=== PATIENT | female | born 1965 | race Caucasian/White ===

== ENCOUNTER → 2016-12-25 18:14 | Outpatient (CLI) | payer BC | END | disposition home or self-care (01) | LOC: D.MAMMO 10:15 | DX: Z12.31 Encounter for screening mammogram for malignant neoplasm of breast (principal) ==

== ENCOUNTER 2017-03-12 11:43 | Emergency (ER) | payer BC ==
[2017-03-12 12:20] LABS: BASOPHILS 0.2 % (0-2); EOSINOPHILS 1.1 % (0-7); HEMATOCRIT 42.7 % (36.0-48.0); HEMOGLOBIN 14.2 g/dL (12-16); IMMATURE GRANULOCYTES 0.2 % (0-5); LYMPHOCYTES 20.7 % (15-50); MCH 30.8 pg (26.0-34.0); MCHC 33.3 g/dL (31.0-37.0); MCV 92.6 fL (80.0-100.0); MEAN PLATELET VOLUME 11.4 fL (7.4-10.4); MONOCYTES 4.3 % (2-11); NEUTROPHILS 73.5 % (40-80); PLATELET COUNT 256 10x3/uL (130-400); RBC 4.61 10x6/uL (4.00-5.40); RDW 13.3 % (11.5-14.5); WBC 9.8 10x3/uL (4.8-10.8)
[2017-03-12 12:42] LABS: ALBUMIN 3.5 g/dL (3.4-5.0); ALKALINE PHOSPHATASE 64 U/L (46-116); ALT (SGPT) 21 U/L (10-68); BILIRUBIN - TOTAL 0.24 mg/dL (0.2-1.3); CALC OSMOLALITY 280 mosm/kg (275-300); CALCIUM 8.9 mg/dL (8.5-10.1); CHLORIDE - SERUM 108 mmol/L (98-107); CREATININE - SERUM 0.6 mg/dL (0.6-1.3); GLUCOSE 85 mg/dL (74-106); PROTEIN - SERUM 6.9 g/dL (6.4-8.2); SODIUM 142 mmol/L (136-145); UREA NITROGEN 10 mg/dL (7-18); eGFR NON AFRICAN AMERICAN > 90 mL/min (90-120)
[2017-03-12 12:55] LABS: CHOL - HDL RATIO 3.3 ratio (2.3-4.1); CHOLESTEROL, TOTAL 154 mg/dL (0-200); CKMB 0.1 U/L (0.0-3.6); CREATINE KINASE 47 UL (21-215); HDL CHOLESTEROL 47 mg/dL (32-96); LDL CHOLESTEROL 88 mg/dL (0-100); LDL-HDL RATIO 1.9 ratio (1.5-3.5); TRIGLYCERIDE 96 mg/dL (30-200)
[2017-03-12 12:59] LABS: TROPONIN-I < 0.017 ng/mL (0.000-0.060)
== END 2017-03-12 14:27 | disposition home or self-care (01) ==
LOC: D.ER 11:43
PROVIDERS: Family Medicine
DX: R07.89 Other chest pain (principal)

== ENCOUNTER → 2018-02-22 15:30 | Outpatient (CLI) | payer BC | END | disposition home or self-care (01) | LOC: D.MAMMO 15:30 | DX: Z12.31 Encounter for screening mammogram for malignant neoplasm of breast (principal) ==

== ENCOUNTER 2019-04-09 09:00 | Outpatient (CLI) | payer BC | END 2019-04-09 10:00 | disposition home or self-care (01) | LOC: D.MAMMO 09:00 | PROVIDERS: ATTEND Emergency Medicine | DX: Z12.31 Encounter for screening mammogram for malignant neoplasm of breast (principal) ==

== ENCOUNTER → 2019-06-24 12:30 | Outpatient (CLI) | payer BC ==
[2019-06-05 16:09] VITALS: BMI 31.1
[~2019-06-24 12:30] MED LIST: ATARAX 25 MG TA25 MG PO; BUPROPION XL300 MG PO; BUSPAR5 MG PO; ELIQUIS5 MG PO; FLORAJEN3 CAPS460 MG PO; IMITREX100 MG PO; INTROVALE; LEVOFLOXACIN500 MG PO; NAPROSYN500 MG PO; Nystatin Oral Susp [ PO; TOPAMAX100 MG PO
== END | disposition home or self-care (01) ==
LOC: D.RT 12:30
PROVIDERS: ATTEND Internal Medicine Pulmonary Disease
DX: R06.00 Dyspnea, unspecified (principal)

== ENCOUNTER 2019-07-22 16:54 | Observation (INO) | payer BC ==
[~2019-07-22] VITALS: Ht 165.1 cm; Wt 80.0 kg
--- NOTE | ~2019-07-22 | HEMODYNAMI ---
PATIENT:MILAGRO JUSTICE MEDICAL RECORD: [id number] : 67 [id number] ADMISSION DATE: 07/22/19 Generatedon:07/23/201913:04 Patient name: MILAGRO JUSTICE Patient #: [id number] SSN: [id number] : 1965 Date of study: 07/23/2019 Page: Of Hemodynamic Procedure Report Patient Data Patient Demographics Procedure consent was obtained First Name: MILAGRO Gender: Female Last Name: RESHMA : 1965 Patient #: [id number] Age: 53 year(s) Race: SSN: [id number] Additional ID: [id number] Contact details [address]: [address] [place] [address] [address] State: [place] City: [place] Zip code: [address] Admission Admission Data Admission Date: 07/22/2019 Admission Time: 18:19 Arrival Date: 07/23/2019 Arrival Time: 18:19 Admit Source: Emergency Insurance Payor: Private department health insurance Room #: D.2114 [facility] #: [id number] Height (in.): 64.96 BSA: 1.87 (m2) Height (cm.): 165 BMI: 29.38 (kg/m2) Weight (lbs.): 176.37 Weight (kg.): 80 Lab Results Lab Result Date: 07/23/2019 Lab Result Time: 0:00 Biochemistry Name Units Result Min Max BUN mg/dl 12 --(-*--)-- 7 18 Creatinine mg/dl 1 --(--*-)-- 0.6 1.3 eGFR ml/min 61.45769 *-(----)-- 90 120 NONAFRICAN CBC Name Units Result Min Max Hemoglobin g/dl 12.3 *-(----)-- 13.5 17.5 Procedure Procedure Types Cath Procedure Diagnostic Procedure LHC LHC w/Coronaries Sedation Charges Moderate Sedation up to 15 minutes Procedure Description Procedure Date Procedure Date: 07/23/2019 Procedure Start Time: 12:50 Procedure End Time: 12:59 Procedure Staff Name Function Sonia Swensonen RT Scrub Sukhi Guidry RN Nurse Surinder Berry MD Performing Physician Fely King RT Monitor Procedure Data Cath Procedure Fluoroscopy Diagnostic fluoroscopy Total fluoroscopy Time: 0.9 time: 0.9 min min Diagnostic fluoroscopy Total fluoroscopy dose: 289 dose: 289 mGy mGy Contrast Material Contrast Material Type Amount (ml) Isovue 300 33 Entry Location Entry Primary Successful Side Size Upsize Upsize Entry Closure Succes sful Closure Location (Fr) 1 (Fr) 2 (Fr) Remarks Device Remarks Femoral Right 5 Fr Exoseal artery Estimated blood loss: 5 ml Diagnostic catheters Device Type Used For End Catheter Placement MULTIPACK JL 4.0 5Fr Left Coronary catheter Angiography MULTIPACK 3DRC 5Fr Right Coronary catheter Angiography MULTIPACK Pigtail 5 Fr LV Angiography catheter Procedure Complications No complications Procedure Medications Medication Administration Route Dosage Oxygen etCO2 Nasal cannula 2 l/min Lidocaine 2% added to field 20 Heparin Flush Bag added to field 2 bags (1000units/500ml NS) 0.9% NaCl I.V. 100 ml/hr Versed I.V. 2 mg Fentanyl I.V. 50 mcg Versed I.V. 1 mg Fentanyl I.V. 50 mcg Hemodynamics Rest BSA: 1.87 (m2) HGB: 12.3 (g/dl) O2 Consumption: Estimated: 183.67 (ml/min) O2 Co nsumption indexed: Estimated:98.22 (ml/min/m) Heart Rate: 73 (bpm) Pressure Samples Time Site Value (mmHg) Purpose Heart Use Rate(bpm) 12:54 LV 112/13,13 Snapshot 70 12:55 LV 98/17,27 Pullback 72 12:55 AO 112/64(95) Pullback 72 Gradients Valve Time Site 1 Site 2 Mean SEP/DFP Peak To Heart Use (mmHg) (sec/min) Peak Rate (mmHg) (bpm) Aortic 12:55 LV AO 0 21 0 72 98/17,27 112/64(95) Calculations Valve P-P Mean Valve Index Valve Source Name Gradient Area Flow (cm2) Aortic 0 0 0 0 Snapshots Pre Cath Intra NCS Post Cath Vital Signs Time Heart Resp SPO2 etCO2 NIBP (mmHg) Rhythm Pain Sedation Rate (ipm) (%) (mmHg) Status Level (bpm) 12:33:06 74 17 100 0 144/85(112) NSR 0 (11) 10(A) , No pain 12:37:15 72 14 98 0 146/87(95) NSR 0 (11) 10(A) , No pain 12:41:27 74 15 98 31.5 118/80(93) NSR 0 (11) 10(A) , No pain 12:45:31 71 14 96 31.5 118/78(93) NSR 0 (11) 10(A) , No pain 12:49:35 73 12 98 35.2 122/75(95) NSR 0 (11) 10(A) , No pain 12:53:39 71 12 96 34.4 119/81(102) NSR 0 (11) 9(A) , No pain 12:57:42 70 13 97 35.2 117/79(94) NSR 0 (11) 10(A) , No pain Medications Time Medication Route Dose Verified Delivered Reason Notes Eff ectiveness by by 12:36:46 Versed I.V. 2 mg Surinder Dustinie for [facility] Socrates Guidry RN sedation 12:36:51 Fentanyl I.V. 50 Surinder Dust[address] mcg [facility] Socrates Guidry RN sedation 12:37:25 Oxygen etCO2 2 Surinder Dustinie used for Nasal l/min JamalSocrates Guidry delivery analyst cannula 12:37:31 Lidocaine 2% added 20ml Surinder Surinder for local to vial [facility] anesthetic field MD CHAUDHRY 12:37:38 Heparin Flush added 2 Surinder Surinder used for Bag to bags [facility] procedure (1000units/500ml field MD CHAUDHRY NS) 12:37:46 0.9% NaCl I.V. 100 Surinder Dustinie Per ml/hr JamalSocrates Guidry RN physician 12:51:31 Versed I.V. 1 mg Surinder Dustinie for JamalSocrates Guidry RN sedation 12:51:34 Fentanyl I.V. 50 Surinder Chanie for mcg Jamal Guidry RN sedation Procedure Log Time Note 12:08:33 Informed consent obtained and on chart 12:10:42 Admit Source: Emergency department 12:10:44 Arrival Date: 07/23/2019 6:19:00 PM 12:11:13 Insurance Payor : Private health insurance 12:11:24 Patient Height : 64.96 inches 12:11:28 Patient Weight : 176.37 lbs 12:12:04 Lab Result : eGFR NONAFRICAN 61.51404 ml/min 12:12:04 Lab Result : Hemoglobin 12.3 g/dl 12:12:04 Lab Result : BUN 12 mg/dl 12:12:04 Lab Result : Creatinine 1 mg/dl 12:12:35 Diagnostic Cath Status : Urgent 12:14:23 Procedure Status Urgent Heart Cath (IP). 12:14: Time tracking: Regular hours (M-F 7:00 - 5:00) 12:14: Sonia Cage RT(R) sent for patient. Start room use. 12:14:31 Plan of Care:Hemodynamics will remain stable., Cardiac rhythm will remain stable., Comfort level will be maintained., Respiratory function will remain adequate., Patient/ family verbilizes understanding of procedure., Procedure tolerated without complication., Recovers from procedure without complications.. 12:25:02 Risk of Mortality: 0.3 12:25:06 Risk of blood transfusion: 1.0 12:25:10 Risk of SEEMA: 0.8 12:25:16 2) 60-89 Mildly reduced kidney function, and other findings (as for stage 1) point to kidney disease. 12:25:33 Maximum allowable contrast dose (3.7 X eGFR X 0.75)172 ml. 12:25:44 Patient received from Med II to CCL 2 Alert and oriented. Tansferred to table in Supine position. 12:25:45 ECG and BP/O2 sat monitors applied to patient. 12:25:45 Correct patient and procedure confirmed by team. 12:25:45 Warm blankets applied, and gloria hugger turned on for patient comfort. 12:32:02 Vital chart was started 12:32:02 Baseline sample Acquired. 12:32:17 Rhythm: sinus rhythm 12:32:19 Full Disclosure recording started 12:32:23 H&P Date Dictated: 07/23/2019 New H&P dictated by physician.. 12:32:24 Pre-procedure instructions explained to patient. 12:32:25 Pre-op teaching completed and patient verbalized understanding. 12:32:50 Family in waiting room. 12:32:52 Patient NPO since Midnight. 12:32:54 Is the patient allergic to Iodine/contrast media? No. 12:32:55 Was the patient premedicated? Yes 12:32:56 Is patient on blood thinner?Yes 12:33:00 ACC The patient was administered the following blood thiners within the last 24 hours: Eliquis 12:33:04 Patient diabetic? No. 12:33:06 Previous problem with sedation/anesthesia? No ? 12:33:08 Snore? Yes 12:33:09 Deviated septum? No 12:33:09 Sleep apnea? No 12:33:15 Sticks out tongue? Yes 12:33:15 Opens mouth fully? Yes 12:33:46 Airway obstruction? Yes BILATERAL PULMONARY EMBOLUS 12:33:51 Dentures? No ? 12:33:54 Pre procedure: right dorsailis pedis pulse 2+ Normal; easily identifiable; not easily obliterated 12:33:56 Pre procedure: left dorsailis pedis pulse 2+ Normal; easily identifiable; not easily obliterated 12:33:58 Patient pain scale 0/10 ?. 12:34:05 IV patent on arrival in left forearm with 0.9% NaCl at [facility]. 12:34:09 Lab results completed and on chart. 12:34:13 Right groin area was prepped with chlora-prep and draped in sterile fashion 12:34:14 Sharps counted by scrub and verified by R.N. 12:34:14 Alarms reviewed by R. N. 12:34:18 --------ALL STOP TIME OUT------ 12:34:18 Physician arrived 12:34:19 Final Timeout: patient, procedure, and site verified with staff and physician. All members of the team are in agreement. 12:34:21 Right groin site verified by team. 12:34:31 Fire Safety Assessment: A--An alcohol-based skin anteseptic being used preoperatively., C--Open oxygen or nitrous oxide is being used., D--An ESU, laser, or fiber-optic light is being used. 12:34:35 Physical assessment completed. ASA score P 2 - A patient with mild systemic disease as per Surinder Berry MD. 12:34:39 Sedation plan: IV Moderate Sedation Medication:Versed, Fentanyl 12:36:43 Use device set Femoral Dx 12:36:44 Bag Decanter (2002S) opened to sterile field. 12:36:44 ACIST Syringe (18222) opened to sterile field. 12:36:45 Medline Cath Pack ([id number]) opened to sterile field. 12:36:46 Versed 2 mg I.V. was administered by Sukhi Guidry RN; for sedation; Verbal order read back and verified. 12:36:46 ACIST Manifold (80828) opened to sterile field. 12:36:46 ACIST Hand Control (58146) opened to sterile field. 12:36:47 Tegaderm 4 x 4 (1626W) opened to sterile field. 12:36:47 DIAGNOSTIC Multipack 5Fr catheter set (HY3841) opened to sterile field. 12:36:48 SHEATH 5FR [place] (LIG747) opened to sterile field. 12:36:49 EMERALD Guide Wire (996-424) opened to sterile field. 12:36:51 Fentanyl 50 mcg I.V. was administered by Sukhi Guidry RN; for sedation; Verbal order read back and verified. 12:37:25 Oxygen 2 l/min etCO2 Nasal cannula was administered by Sukhi Guidry RN; used for procedure; Verbal order read back and verified. 12:37:31 Lidocaine 2% 20ml vial added to field was administered by Surnider Berry MD; for local anesthetic; Verbal order read back and verified. 12:37:38 Heparin Flush Bag (1000units/500ml NS) 2 bags added to field was administered by Surinder Berry MD; used for procedure; Verbal order read back and verified. 12:37:46 0.9% NaCl 100 ml/hr I.V. was administered by Sukhi Guidry RN; Per physician; Verbal order read back and verified. 12:43:07 Zero performed for pressure channel P1 12:50:02 Procedure started. 12:50:05 Local anesthetic to right femoral artery with Lidocaine 2% by Surinder Berry MD.INITIAL ACCESS ONLY 12:50:45 A 5 Fr sheath was inserted into the Right Femoral artery 12:51:04 A MULTIPACK JL 4.0 5Fr catheter was advanced over the wire and used for Left Coronary Angiography. 12:51:22 LCA angiography performed. 12:51:25 Injector settings: Ml/sec: 3, Volume: 6, 12:51:31 Versed 1 mg I.V. was administered by Sukhi Guidry RN; for sedation; Verbal order read back and verified. 12:51:34 Fentanyl 50 mcg I.V. was administered by Sukhi Guidry RN; for sedation; Verbal order read back and verified. 12:52:55 Catheter removed. 12:52:59 A MULTIPACK 3DRC 5Fr catheter was advanced over the wire and used for Right Coronary Angiography. 12:53:27 RCA angiography performed. 12:53:29 Injector settings: Ml/sec: 3, Volume: 6, 12:53:32 Catheter removed. 12:53:41 A MULTIPACK Pigtail 5 Fr catheter was advanced over the wire and used for LV Angiography. 12:54:46 LV hemodynamics recorded. 12:54:47 LV gram done using CARSON 12:54:54 Injector settings: Ml/sec: 5, Volume: 15, 12:55:09 EF : 55 % 12:55:11 Catheter removed. 12:55:14 EXOSEAL 5Fr (EX500) opened to sterile field. 12:55:25 Sheath removed intact; hemostasis achieved with Exoseal to the Right Femoral artery. 12:55:26 Procedure ended.(Physican Out) 12:56:04 Fluoroscopy time 00.90 minutes. 12:56:07 Fluoroscopy dose: 289 mGy 12:56:07 Flurop Dose total: 289 12:56:13 Dose Area Product 63910 mGy/cm. 12:56:16 Contrast amount:Isovue 300 33ml. 12:56:18 Maximum allowable dose exceeded? No. 12:56:20 Sharps counted by scrub and verified by R.N. 12:56:30 Insertion/operative site no bleeding no hematoma. 12:56:33 Post-op/insertion site Right Femoral artery dressed using a 4 x 4 and Tegaderm. 12:56:35 Post Procedure Pulses reassessed and unchanged 12:56:37 Post procedure rhythm: unchanged. 12:56:40 Estimated blood loss: 5 ml 12:56:42 Patient needs reinforcement of post procedure teaching. 12:56:42 Post procedure instruction explained to patient.Patient verbalizes understanding. 12:57:08 Procedure type changed to Cath procedure, Diagnostic procedure, LHC, LHC w/Coronaries, Sedation Charges, Moderate Sedation up to 15 minutes 12:57:09 Procedure and supply charges have been captured, reviewed, submitted and are correct. 12:57:14 Procedure Complication : No complications 12:58:52 Vital chart was stopped 12:58:54 [facility] Findings: mild to moderate CAD (<70%) 12:58:56 Operative report dictated upon procedure completion. 12:58:57 See physician's report for complete and final results. 12:59:09 Report given to [facility] II. 12:59:11 Patient transfered to Med II with Stretcher. 12:59:14 Full Disclosure recording stopped 12:59:14 Procedure ended. 12:59:19 End room use (Document Last) 13:02:21 End room use (Document Last) Device Usage Item Name Manufacture Quantity Catalog Hospital Part Current Minimal L ot# / Number Charge Number Stock Stock Serial# Code ACIST Acist 1 62485 582853 101033 143971 20 Syringe Medical (85461) Systems Inc Bag Microtek 1 2001S 013321 58403 475679 5 Decanter Medical Inc. () Medline Medline 1 [id number] 763860 73546 356442 5 Cath Pack ([id number]) ACIST Hand Acist 1 51613 427046 785223 533064 5 Control Medical (23111) Systems Inc ACIST Acist 1 79244 491537 726721 087830 5 Manifold Medical (87546) Systems Inc DIAGNOSTIC Cardinal 1 [id number] 523599 21663 677916 30 Multipack Health 5Fr catheter set (QU2724) Tegaderm 4 3M 1 1626W 304022 002849 564805 5 x 4 (1626W) SHEATH 5FR Terumo 1 VUT630 876964 900155 297557 5 [place] (UYE122) EMERALD Cardinal 1 502-455 782943 535458 212315 5 Guide Wire Health (502455) MULTIPACK Cardinal 1 809615 5 JL 4.0 5Fr Health catheter MULTIPACK Cardinal 1 088243 5 3DRC 5Fr Health catheter MULTIPACK Cardinal 1 045144 5 Pigtail 5 Health Fr catheter EXOSEAL 5Fr Cardinal 1 EX500 727490 046590 947591 10 (EX500) Health Signature Audit Waite Stage Time Signature Unsigned Intra-Procedure 07/23/2019 Sonia Cage 1:02:21 PM RT(R) Intra-Procedure 07/23/2019 Sukhi Guidry RN 1:04:26 PM Intra-Procedure 07/23/[address] 1:04:52 PM Socrates Signatures Nurse : Sukhi Guidry RN Signature : Date : Time : Performing Physician : Signature : Surinder Berry MD Date : Time : Monitor : Fely King Signature : RT Date : Time : [facility] [address] [place] [address]
[2019-07-22] MEDS ORDERED: ULTRAM50 MG PO (17:09)
[2019-07-22] MEDS ORDERED: VITAMIN B-1250 MCG (17:09)
[2019-07-22] MEDS ORDERED: FOLATE (17:10)
[2019-07-22 17:27] LABS: CALC OSMOLALITY 287 mosm/kg (275-300); CALCIUM 9.2 mg/dL (8.5-10.1); CARBON DIOXIDE 23.4 mmol/L (21.0-32.0); CHLORIDE - SERUM 109 mmol/L (98-107); CREATININE - SERUM 1.3 mg/dL (0.6-1.3); GLUCOSE 92 mg/dL (74-106); POTASSIUM - SERUM 3.3 mmol/L (3.5-5.1); SODIUM 145 mmol/L (136-145); UREA NITROGEN 11 mg/dL (7-18); eGFR NON AFRICAN AMERICAN 46 mL/min (90-120)
[2019-07-22 17:30] LABS: APTT 26.6 SECONDS (22.8-39.4); INR 1.07 (0.85-1.17); PROTIME 13.8 SECONDS (11.6-15.0)
[2019-07-22 17:31] LABS: D-DIMER-QUANTITATIVE < 0.27 ug/mLFEU (0.20-0.54)
[2019-07-22 17:44] LABS: ALBUMIN 3.8 g/dL (3.4-5.0); ALKALINE PHOSPHATASE 105 U/L (30-120); ALT (SGPT) 59 U/L (10-68); BILIRUBIN - TOTAL 0.28 mg/dL (0.2-1.3); CKMB 0.8 U/L (0.0-3.6); CREATINE KINASE 86 UL (21-215); HEMATOCRIT 38.5 % (36.0-48.0); HEMOGLOBIN 12.4 g/dL (12-16); LYMPHOCYTES 22.1 % (15-50); MAGNESIUM - SERUM 1.7 mg/dL (1.8-2.4); MCH 27.7 pg (26.0-34.0); MCHC 32.2 g/dL (31.0-37.0); MCV 86.1 fL (80.0-100.0); MEAN PLATELET VOLUME 10.9 fL (7.4-10.4); NEUTROPHILS 67.8 % (40-80); PLATELET COUNT 257 10x3/uL (130-400); PROTEIN - SERUM 6.9 g/dL (6.4-8.2); RBC 4.47 10x6/uL (4.00-5.40); RDW 14.7 % (11.5-14.5); WBC 9.8 10x3/uL (4.8-10.8)
[2019-07-22 17:52] LABS: TROPONIN-I < 0.017 ng/mL (0.000-0.060)
--- NOTE | 2019-07-22 17:52 | NUR ---
PATIENT PAIN FREE AFTER 2ND NTG SL.
[2019-07-22 19:26] LABS: CKMB 0.5 U/L (0.0-3.6); CREATINE KINASE 72 UL (21-215)
[2019-07-22 19:27] LABS: TROPONIN-I < 0.017 ng/mL (0.000-0.060)
[2019-07-22 19:31] VITALS: BP 138/85; BMI 29.3
--- NOTE | 2019-07-22 19:50 | NUR ---
RECIEVED REPORT FROM ER NURSE. PT ARRIVED BY WHEELCHAIR. AAOX4, AFVSS. NO S/S OF RT DISTRESS. PT DENIES CP AT THIS TIME. NITRO PASTE ON LEFT CHEST. INITIAL ASSESSMENT COMPLETED. PT DENIES ANY FURTHER NEEDS AT THIS TIME. WILL CPOC. CL WITHIN REACH, BED IN LOW, SR UP X2.
[2019-07-23 00:33] VITALS: BP 118/64
[2019-07-23 00:49] LABS: CKMB 0.4 U/L (0.0-3.6); CREATINE KINASE 64 UL (21-215); TROPONIN-I < 0.017 ng/mL (0.000-0.060)
[2019-07-23 04:56] VITALS: BP 135/75
[2019-07-23 05:13] LABS: ALBUMIN 3.5 g/dL (3.4-5.0); ALKALINE PHOSPHATASE 94 U/L (30-120); ALT (SGPT) 56 U/L (10-68); BILIRUBIN - TOTAL 0.33 mg/dL (0.2-1.3); CALC OSMOLALITY 286 mosm/kg (275-300); CALCIUM 8.8 mg/dL (8.5-10.1); CARBON DIOXIDE 24.8 mmol/L (21.0-32.0); CHLORIDE - SERUM 109 mmol/L (98-107); CKMB 0.5 U/L (0.0-3.6); CREATINE KINASE 61 UL (21-215); GLUCOSE 100 mg/dL (74-106); MAGNESIUM - SERUM 1.8 mg/dL (1.8-2.4); POTASSIUM - SERUM 3.6 mmol/L (3.5-5.1); PROTEIN - SERUM 6.5 g/dL (6.4-8.2); SODIUM 144 mmol/L (136-145); UREA NITROGEN 12 mg/dL (7-18); eGFR NON AFRICAN AMERICAN 62 mL/min (90-120)
[2019-07-23 05:15] LABS: TROPONIN-I < 0.017 ng/mL (0.000-0.060)
[2019-07-23 05:38] LABS: HEMATOCRIT 38.5 % (36.0-48.0); HEMOGLOBIN 12.3 g/dL (12-16); LYMPHOCYTES 10.5 % (15-50); MCH 27.8 pg (26.0-34.0); MCHC 31.9 g/dL (31.0-37.0); MCV 86.9 fL (80.0-100.0); MEAN PLATELET VOLUME 11.6 fL (7.4-10.4); NEUTROPHILS 81.5 % (40-80); PLATELET COUNT 221 10x3/uL (130-400); RBC 4.43 10x6/uL (4.00-5.40); RDW 14.6 % (11.5-14.5); WBC 11.2 10x3/uL (4.8-10.8)
[2019-07-23 08:23] VITALS: BP 122/68
[2019-07-23 08:26] VITALS: Ht 165.1 cm; Wt 80.0 kg
[2019-07-23 08:43] LABS: CHOL - HDL RATIO 2.8 ratio (2.3-4.1); LDL-HDL RATIO 1.7 ratio (1.5-3.5)
--- NOTE | 2019-07-23 08:47 | NUR ---
CONSENTS SIGNED FOR [facility]. WILL CONT. PLAN OF CARE.
--- NOTE | 2019-07-23 12:29 | NUR ---
PRE-OPS GIVEN. TO HOTEL ASSOCIATE BY BED.
[2019-07-23] MEDS ORDERED: ELIQUIS5 MG PO (13:22)
--- NOTE | 2019-07-23 13:23 | NUR ---
BACK FROM MACHINE OPERATOR HOP WORKER. VS WNL. RIGHT GROIN STABLE WITHOUT BLEEDING OR HEMATOMA NOTED. WILL MONITOER.
[2019-07-23 14:41] LABS: BILIRUBIN NEGATIVE (NEGATIVE); GLUCOSE NEGATIVE (NEGATIVE); KETONE NEGATIVE (NEGATIVE); NITRITE NEGATIVE (NEGATIVE); UROBILINOGEN NORMAL (NORMAL)
--- NOTE | 2019-07-23 15:02 | NUR ---
BED REST UP. GROIN STABLE.
--- NOTE | 2019-07-23 16:25 | NUR ---
IV AND TELEMETRY DCD. DC PLANS GIVEN. UNDERSTANDING VOICED. ESCORTED TO CAR BY W/C.
--- NOTE | 2019-07-23 16:35 | MORECARE ---
CASE MANAGEMENT DISCHARGE SUMMARY PATIENT: MILAGRO JUSTICE UNIT: [id number] ADM DATE: 07/22/19 AGE: 53 : [birth year] SEX: F ROOM/BED: D.2114 AUTHOR: YOSI DAVIS PHYSICIAN: REFERRING PHYSICIAN: GAGANDEEP LIVE MD DATE OF SERVICE: 07/23/19 Discharge Plan Patient Name: MILAGRO JUSTICE [facility] [facility] 1965 Planned Disposition: Home Anticipated Discharge Date: 07/23/19 Discharge Date: 07/23/2019 Expected LOS: 1 Initial Reviewer: [email or web address] Initial Review Date: 07/16/2019 Generated: 07/23/19 5:34 pm Patient Name: MILAGRO JUSTICE Page [id number] at 1635 All edits/amendments must be made on the electronic document DICTATION DATE: 07/23/19 1634 ENVIRONMENTAL EPIDEMIOLOGIST: DALE 07/23/19 1634 RPT#: [id number] DC DATE:07/23/19 STATUS: DIS IN [facility] [address] [place] [address] END OF REPORT
--- NOTE | 2019-07-24 11:53 | OP ---
PATIENT NAME: MILAGRO JUSTICE MEDICAL RECORD: [id number] :[birth year] LOCATION:D.M2 D.2114 ADMISSION DATE:07/22/19 SURGEON: KEVIN VEE MD DATE OF OPERATION: 07/23/2019 PROCEDURE: Left heart catheterization, selective coronary angiography, right femoral artery approach. CATHETERS: A 5-Bermudian sheath, 5/4 left and right Jim, 5/4 pig. The procedure was well tolerated. The patient returned to cabello, sheath removed. ExoSeal device placed. FINDINGS: Left ventriculography in 30-degree CARSON view: Normal wall motion, normal systolic function. CORONARY ANATOMY: LEFT MAIN: Left main is free of disease. LAD: Free of disease in the diagonal system. CIRCUMFLEX: Free of disease in the marginal system. RIGHT CORONARY ARTERY: Dominant artery, gives rise to PDA, free of disease. IMPRESSION: Normal LV systolic function, normal coronary anatomy. TRANSINT:[id number] Voice Confirmation ID: [id number] DOCUMENT ID: [id number] KEVIN VEE MD at 1153 CC: [id number] DICTATION DATE: 07/23/19 1303 FLIGHT OPERATIONS ENGINEER: 07/23/19 1311 DIS IN 07/23/19 [facility] [address] [place] [address]
== END 2019-07-23 16:26 | disposition home or self-care (01) ==
LOC: D.ER 16:54 → D.M2 18:19 → OBSVTIME 18:49 → D.M2 07-23 16:26
PROVIDERS: Family Medicine; Internal Medicine Interventional Cardiology; ADMIT Internal Medicine Nephrology; ATTEND Internal Medicine Nephrology
DX: R07.9 Chest pain, unspecified (principal); Z86.711 Personal history of pulmonary embolism; Z86.718 Personal history of other venous thrombosis and embolism; Z79.01 Long term (current) use of anticoagulants; E87.6 Hypokalemia; E83.42 Hypomagnesemia

== ENCOUNTER → 2019-09-01 13:09 | Outpatient (CLI) | payer BC ==
[2019-07-23 08:26] VITALS: BMI 29.3
[~2019-09-01 13:09] MED LIST changes: +FOLATE; +ULTRAM50 MG PO; +VITAMIN B-1250 MCG
[2019-09-01 13:48] LABS: CREATININE - SERUM 1.1 mg/dL (0.6-1.3)
== END | disposition home or self-care (01) ==
LOC: D.LAB 13:09 → D.CT 13:30
PROVIDERS: ATTEND Internal Medicine Pulmonary Disease
DX: I82.409 Acute embolism and thrombosis of unspecified deep veins of unspecified lower extremity (principal); I26.99 Other pulmonary embolism without acute cor pulmonale